=== PATIENT | male | born 1960 ===

== ENCOUNTER 2017-05-10 09:36 | Outpatient (CLI) | payer OTHER ==
--- NOTE | 2017-05-11 09:36 | Cat Scan Report ---
CT NECK WITH CONTRAST: 05/10/17 09:36:00 CLINICAL: Left neck mass. No comparison. TECHNIQUE: Volumetric acquisition and 1.25 mm scan reconstructionsafter the uneventful intravenous injection of 100-cc Omnipaque 350. Consent was obtained prior to the administration of the IV contrast. FINDINGS: Normal mucosal structures of the nasopharynx, oropharynx, hypopharynx and larynx. The parapharyngeal spaces are normal. Two greatly enlarged left level VB cervical lymph nodes the more lateral lymph node measures 5.7 centimeters craniocaudal dimension x 3.8 centimeters AP dimension x 3.0 centimeters transverse dimension and the more medial lymph node measures 6.7 cm craniocaudal dimension by 2.8 cm AP dimension of 4.2 cm transverse dimension. The larger more medial lymph node extends to the clavicle. A left level II jugular lymph node measures 1.6 x 1.6 x 1.0 cm. Numerous additional shotty lymph nodes in the left jugular chain. The largest right jugular lymph node is a level II lymph node measuring 1.2 x 0.9 x 1.4 cm. Multiple additional shotty right jugular chain lymph nodes. Normal salivary glands. The bones and vascular structures are normal. Normal thyroid. The upper chest is remarkable for a left superior mediastinal lymph node measuring 4.5 x 3.4 cm. The lung apices are clear. IMPRESSION: 1. Left level VB cervical lymphadenopathy and superior mediastinal lymphadenopathy suspicious for lymphoma. 2. No mucosal lesion of the neck.
== END 2017-05-10 09:37 | disposition home or self-care (01) ==
LOC: SPVIMAG 09:36
DX: R59.0 Localized enlarged lymph nodes (principal)
CPT/HCPCS: 70491; Q9967